=== PATIENT | female | born 1985 | race Two or more races ===

== ENCOUNTER → 2020-03-22 | Outpatient (CLI) | payer OTHER | END | disposition home or self-care (01) | LOC: ECT 11:16 | DX: K21.9 Gastro-esophageal reflux disease without esophagitis (principal); F33.2 Major depressive disorder, recurrent severe without psychotic features; F41.1 Generalized anxiety disorder; E06.3 Autoimmune thyroiditis; E78.5 Hyperlipidemia, unspecified; R61 Generalized hyperhidrosis; Z79.899 Other long term (current) drug therapy ==

== ENCOUNTER 2020-05-20 05:47 | Outpatient (RCR) | payer OTHER ==
[~2020-05-20] VITALS: Ht 153 cm; Wt 44.0 kg
[2020-05-20] MEDS ORDERED: NS 500ML ONE (05:48)
[2020-05-20] MEDS ORDERED: Succinylcholine 20mg/ml 10ml vial ONE (05:48)
[2020-05-20] MEDS ORDERED: Methohexital Sodium Syr 100mg/10ml IVP ONE (05:48)
[2020-05-20] MEDS ORDERED: Midazolam 2mg/2ml Inj ONE (05:48)
[2020-05-20 09:58] VITALS: BP 116/82
[2020-05-20 10:08] VITALS: BP 116/82
[2020-05-20 10:21] VITALS: BP 103/56
[2020-05-20 10:26] VITALS: BP 110/66
[2020-05-20 10:31] VITALS: BP 106/57
[2020-05-20 10:36] VITALS: BP 106/52
[2020-05-22] MEDS ORDERED: Methohexital Sodium Syr 100mg/10ml IVP ONE (06:00)
[2020-05-22] MEDS ORDERED: Ketorolac 30mg Inj ONE (06:00)
[2020-05-22] MEDS ORDERED: NS 500ML ONE (06:00)
[2020-05-22] MEDS ORDERED: Succinylcholine 20mg/ml 10ml vial ONE (06:00)
[2020-05-22 10:59] VITALS: BP 103/68
[2020-05-22] MEDS ORDERED: Lidocaine 2% 100mg/5ml Carp IV PRN (11:19)
[2020-05-22] MEDS ORDERED: Atropine Sulfate 0.4mg/ml inj IVP PRN (11:19)
[2020-05-22 11:20] VITALS: BP 118/60
[2020-05-22 11:25] VITALS: BP 113/63
[2020-05-22 11:30] VITALS: BP 112/58
[2020-05-22 11:35] VITALS: BP 109/59
[2020-05-24] VITALS (7 sets, daily range): BP systolic 112–128; BP diastolic 54–78
[2020-05-24] MEDS ORDERED: Ketorolac 30mg Inj ONE (07:00)
[2020-05-24] MEDS ORDERED: Succinylcholine 20mg/ml 10ml vial ONE (07:00)
[2020-05-24] MEDS ORDERED: NS 500ML ONE (07:00)
[2020-05-24] MEDS ORDERED: Methohexital Sodium Syr 100mg/10ml IVP ONE (07:00)
[2020-05-27] VITALS (7 sets, daily range): BP systolic 100–118; BP diastolic 58–74
[2020-05-27] MEDS ORDERED: Succinylcholine 20mg/ml 10ml vial ONE (07:00)
[2020-05-27] MEDS ORDERED: NS 500ML ONE (07:00)
[2020-05-27] MEDS ORDERED: Ketorolac 60mg Inj IM ONE (07:00)
[2020-05-27] MEDS ORDERED: Methohexital Sodium Syr 100mg/10ml IVP ONE (07:00)
[2020-05-27] MEDS ORDERED: Atropine Sulfate 0.4mg/ml inj IVP PRN (10:09)
[2020-05-27] MEDS ORDERED: Lidocaine 2% 100mg/5ml Carp IV PRN (10:09)
[2020-05-29] VITALS (7 sets, daily range): BP systolic 104–140; BP diastolic 43–70
[2020-05-29] MEDS ORDERED: Ketorolac 30mg Inj ONE (06:00)
[2020-05-29] MEDS ORDERED: NS 500ML ONE (06:00)
[2020-05-29] MEDS ORDERED: Succinylcholine 20mg/ml 10ml vial ONE (06:00)
[2020-05-29] MEDS ORDERED: Methohexital Sodium Syr 100mg/10ml IVP ONE (06:00)
[2020-05-31] VITALS (7 sets, daily range): BP systolic 101–122; BP diastolic 53–88
[2020-05-31] MEDS ORDERED: Methohexital Sodium Syr 100mg/10ml IVP ONE (09:00)
[2020-05-31] MEDS ORDERED: Succinylcholine 20mg/ml 10ml vial ONE (09:00)
[2020-05-31] MEDS ORDERED: NS 500ML ONE (09:00)
[2020-05-31] MEDS ORDERED: Ketorolac 30mg Inj ONE (09:00)
== END 2020-05-31 | disposition home or self-care (01) ==
LOC: ECT 05:47
DX: F33.2 Major depressive disorder, recurrent severe without psychotic features (principal)
CPT/HCPCS: 90870; J0330; J1885; J2250; J2405; J7040

== ENCOUNTER 2020-06-03 06:55 | Outpatient (RCR) | payer OTHER ==
[~2020-06-03] VITALS: Ht 152.4 cm; Wt 44.0 kg
[2020-06-03] MEDS ORDERED: Methohexital Sodium Syr 100mg/10ml IVP ONE (06:56)
[2020-06-03] MEDS ORDERED: NS 500ML ONE (06:56)
[2020-06-03] MEDS ORDERED: Succinylcholine 20mg/ml 10ml vial ONE (06:56)
[2020-06-03] MEDS ORDERED: Ketorolac 30mg Inj ONE (06:56)
[2020-06-05] VITALS (7 sets, daily range): BP systolic 97–107; BP diastolic 47–71
[2020-06-05] MEDS ORDERED: Succinylcholine 20mg/ml 10ml vial ONE (09:00)
[2020-06-05] MEDS ORDERED: NS 500ML ONE (09:00)
[2020-06-05] MEDS ORDERED: Methohexital Sodium Syr 100mg/10ml IVP ONE (09:00)
[2020-06-05] MEDS ORDERED: Ketorolac 30mg Inj ONE (09:00)
[2020-06-05] MEDS ORDERED: Lidocaine 2% 100mg/5ml Carp IV PRN (11:59)
[2020-06-05] MEDS ORDERED: Atropine Sulfate 0.4mg/ml inj IVP PRN (11:59)
[2020-06-07] VITALS (7 sets, daily range): BP systolic 102–118; BP diastolic 55–71
[2020-06-07] MEDS ORDERED: Methohexital Sodium Syr 100mg/10ml IVP ONE (07:00)
[2020-06-07] MEDS ORDERED: NS 500ML ONE (07:00)
[2020-06-07] MEDS ORDERED: Succinylcholine 20mg/ml 10ml vial ONE (07:00)
[2020-06-07] MEDS ORDERED: Ketorolac 60mg Inj IM ONE (07:00)
[2020-06-10] VITALS (7 sets, daily range): BP systolic 108–122; BP diastolic 59–73
[2020-06-10] MEDS ORDERED: NS 500ML ONE (07:00)
[2020-06-10] MEDS ORDERED: Succinylcholine 20mg/ml 10ml vial ONE (07:00)
[2020-06-10] MEDS ORDERED: Ketorolac 30mg Inj ONE (07:00)
[2020-06-10] MEDS ORDERED: Methohexital Sodium Syr 100mg/10ml IVP ONE (07:00)
[2020-06-10] MEDS ORDERED: Atropine Sulfate 0.4mg/ml inj IVP PRN (10:34)
[2020-06-10] MEDS ORDERED: Lidocaine 2% 100mg/5ml Carp IV PRN (10:34)
[2020-06-12] VITALS (7 sets, daily range): BP systolic 103–126; BP diastolic 53–73
[2020-06-12] MEDS ORDERED: Atropine Sulfate 0.4mg/ml inj IVP PRN (10:54)
[2020-06-14] VITALS (7 sets, daily range): BP systolic 104–137; BP diastolic 53–83
[2020-06-14] MEDS ORDERED: Methohexital Sodium Syr 100mg/10ml IVP ONE (07:00)
[2020-06-14] MEDS ORDERED: NS 500ML ONE (07:00)
[2020-06-14] MEDS ORDERED: Ketorolac 60mg Inj IM ONE (07:00)
[2020-06-14] MEDS ORDERED: Succinylcholine 20mg/ml 10ml vial ONE (07:00)
[2020-06-17] VITALS (7 sets, daily range): BP systolic 106–119; BP diastolic 50–73
[2020-06-17] MEDS ORDERED: NS 500ML ONE (09:00)
[2020-06-17] MEDS ORDERED: Succinylcholine 20mg/ml 10ml vial ONE (09:00)
[2020-06-17] MEDS ORDERED: Methohexital Sodium Syr 100mg/10ml IVP ONE (09:00)
[2020-06-17] MEDS ORDERED: Ketorolac 30mg Inj ONE (09:00)
[2020-06-17] MEDS ORDERED: Atropine Sulfate 0.4mg/ml inj IVP PRN (11:05)
== END 2020-07-01 | disposition home or self-care (01) ==
LOC: ECT 06:55
DX: F33.2 Major depressive disorder, recurrent severe without psychotic features (principal)
CPT/HCPCS: 90870; J0330; J1885; J2405; J7040